=== PATIENT | female | born 1960 | race American Indian/Alaskan Native ===

== ENCOUNTER 2018-08-10 12:36 | Outpatient (CLI) | payer BC ==
--- NOTE | 2018-08-10 15:31 | Mammography Report ---
BONE DEXA:08/10/18 CLINICAL: Postmenopausal. No comparison. TECHNIQUE: Two site bone DEXA performed on an Hologic scanner. FINDINGS: The average BMD of the lumbar spine L1-L4 is 0.933g/cm squared with a T-score of -1.0 and a Z-score of -0.7. The average BMD of the left hip is 0.777g/cm squared with a T-score of -1.4 and a Z-score of -1.0. The left femoral neck BMD is 0.638 with a T score of -1.9 and a Z score of -1.3 IMPRESSION: 1. WHO classification: Normal with average fracture risk based on lumbar spine measurements. 2. WHO classification: Osteopenia with increased fracture risk based on left hip measurements. 3. The FRAX 10 year fracture probability for a major osteoporotic fracture is 3.5%. 4. The FRAX 10 year fracture probability for hip fracture is 0.3%. Note: FRAX version 3.01. Fracture probability calculated for an untreated patient. Fracture probability may be lower if the patient has received treatment. RECOMMENDATION: Clinical correlation and routine screening. DEFINITIONS: BMD = Bone Mineral Density T-score = BMD related to mean peak bone mass of young adult (mean expressed in Standard Deviation) Z-score = Age matched BMD expressed in SD World Health Organization (WHO) Diagnostic Criteria Normal T-score > -1 SD Osteopenia T-score between -1 and -2.4 SD Osteoporosis T-score -2.5 SD or below NOTE: BMD is not the only risk factor for fracture; also consider factors such as the patient's age, risk of falling, previous osteoporotic fracture, family history of osteoporotic fractures, current smoker, and low body weight. All treatment decisions require clinical judgment and consideration of individual patient factors, including patient preferences, comorbidities, previous drug use and risk factors not captured in the FRAX model (e.g. frailty, falls, vitamin D deficiency, increased bone turnover, interval significant decline in BMD). Fracture probability is calculated for an untreated patient. Fracture probability may be lower if the patient has received treatment. Z-scores are not calculated if >80 years of age.
== END 2018-08-10 12:37 | disposition home or self-care (01) ==
LOC: MAMMO 12:36
PROVIDERS: ATTEND Internal Medicine
DX: M85.88 Other specified disorders of bone density and structure, other site (principal); Z78.0 Asymptomatic menopausal state
CPT/HCPCS: 77080

== ENCOUNTER 2018-11-30 13:13 | Outpatient (CLI) | payer BC ==
[2018-11-30 14:01] LABS: Basophils % (Auto) 0.3 % (0.0-1.8); Eosinophils # (Auto) 0.1 K/mm3 (0.0-0.4); Eosinophils % (Auto) 0.8 % (0.0-4.3); Hematocrit 36.3 % (30.3-42.9); Lymphocytes # (Auto) 1.2 K/mm3 (1.2-5.4); Mean Corpuscular HGB Conc 33 % (30-34); Mean Corpuscular Volume 83 fl (79-97); Monocytes # (Auto) 0.9 K/mm3 (0.0-0.8); Monocytes % (Auto) 13.5 % (0.0-7.3); Platelet Count 240 K/mm3 (140-440); Red Blood Count 4.39 M/mm3 (3.65-5.03); Red Cell Distribution Width 14.3 % (13.2-15.2)
[2018-11-30 14:36] LABS: Alanine Aminotransferase 17 units/L (7-56); BUN/Creatinine Ratio 15; Blood Urea Nitrogen 9 mg/dL (7-17); Calcium 8.7 mg/dL (8.4-10.2); Hemolysis Index 9
== END 2018-11-30 13:14 | disposition home or self-care (01) ==
LOC: LAB 13:13
PROVIDERS: ATTEND Internal Medicine
DX: E11.9 Type 2 diabetes mellitus without complications (principal); K59.1 Functional diarrhea
CPT/HCPCS: 80053; 84443; 85025

== ENCOUNTER 2019-01-16 08:27 | Day surgery (SDC) | payer BC ==
[~2019-01-16 08:27] MED LIST: NACL 0.9% 1000 ML 1,000 ML IV SCH
--- NOTE | 2019-01-16 09:46 | Anesthesia Day of Surgery ---
Anesthesia Day of Surgery - Day of Surgery Patient Examined: Yes Patient H&P Reviewed: Yes Patient is NPO: Yes
--- NOTE | 2019-01-16 09:47 | Anesthesia Consultation ---
Anesthesia Consult and Med Hx Date of service: 01/16/19 - Airway Anesthetic Teeth Evaluation: Good, Crowns ROM Head & Neck: Adequate Mental/Hyoid Distance: Adequate Mallampati Class: Class I Intubation Access Assessment: Good - Pre-Operative Health Status ASA Pre-Surgery Classification: ASA2 Proposed Anesthetic Plan: MAC - Cardiovascular System Hx Coronary Artery Disease: No (ETT 12/01 ok per pt) - Gastrointestinal Hx Gastroesophageal Reflux Disease: Yes - Endocrine Hx Non-Insulin Dependent Diabetes: Yes
[2019-01-16] MEDS ORDERED: WATER FOR IRRIG STERILE IR ONE (10:06)
[2019-01-16] MEDS ORDERED: DIPRIVAN 10 MG/ML IV ONE ×2 (10:13)
--- NOTE | 2019-01-16 10:40 | Short Stay Summary ---
Short Stay Documentation Date of service: 01/16/19 Narrative H&P: The patient present for surveillance colonoscopy for personal history of polyps and strong FH of colon cancer, mother. Previous study about 5 years ago. No records available. - History Past Medical History: diabetes, other (DVT, IBS) Past Surgical History: hysterectomy (oopherectomy) Social history: no significant social history, , no smoking, no alcohol abuse - Allergies and Medications Current Medications: Allergies sulfamethoxazole [From Bactrim] Allergy (Mild, Verified 01/15/19 15:19) Rash trimethoprim [From Bactrim] Allergy (Mild, Verified 01/15/19 15:19) Rash Sulfa (Sulfonamide Antibiotics) Adverse Reaction (Verified 01/15/19 15:19) Itching Home Medications Medication Instructions Recorded Confirmed Last Taken Type Ibuprofen 800 mg PO PRN PRN 01/15/19 01/16/19 01/09/19 History Amaryl 2 mg PO BID 01/16/19 01/16/19 01/14/19 History metFORMIN 500 mg PO BID 01/16/19 01/16/19 01/14/19 History Active Medications Sodium Chloride (Nacl 0.9% 1000 Ml) 1,000 mls @ 50 mls/hr IV DIRECT KEVIN Last Admin: 01/16/19 09:59 Dose: 50 mls/hr Documented by: - Physical exam General appearance: no acute distress, well-nourished Integumentary: no rash, no growths, no abnormal pigmentation HEENT: Atraumatic, PERRLA, EOMI, Mucous membr. moist/pink Lungs: Clear to auscultation, Normal air movement Breasts: deferred Heart: Regular rate, Normal S1, Normal S2, No murmurs Gastrointestinal: normoactive bowel sounds, no tenderness, no distended, no masses, no guarding, no organomegaly, no obese Female Genitourinary: deferred Rectal Exam: deferred Extremities: no ischemia, pulses intact, pulses symmetrical, No edema, normal temperature, normal color, Full ROM Neurological: Normal gait, Normal speech, Strength at 5/5 X4 ext, Normal tone, Sensation intact, Cranial nerves 3-12 NL - Brief post op/procedure progress note Date of procedure: 01/16/19 Procedure: see dictated report Estimated blood loss: none Pathology: none Condition: stable - Disposition Condition at discharge: Good Disposition: DC-01 TO HOME OR SELFCARE - Discharge Diagnoses (1) History of colon polyps Status: Acute (2) FH: colon cancer Status: Acute Short Stay Discharge Plan Activity: other (no driving for 24 hours) Weight Bearing Status: Full Weight Bearing Diet: diabetic Follow up with: LUISA TOWNSEND MD [Primary Care Provider] - 7 Days
--- NOTE | 2019-01-16 10:42 | Operative Report ---
Operative Report Operative Report: Date of procedure: 01/16/2019 Preprocedure diagnosis: Surveillance colonoscopy for history of polyps and high risk screening for family history of first-degree member with colon cancer mother. Post procedure diagnosis: Normal study Procedure: Colonoscopy to the cecum Endoscopist: Dr. Islas Anesthesia: Monitored anesthesia care per anesthesia department Estimated blood loss: 0 Medications: Monitored anesthesia care. See separate report by anesthesia for details. After careful discussion of the nature and purpose of the procedure as well as details of the technique risks benefits and alternatives the patient gave consent. Please see recent history and physical from the office. The patient was placed in the left lateral decubitus position and medicated per anesthesia. A rectal exam was performed sphincter tone was normal there were no masses palpable. The [employer] 570 scope was passed transanally and advanced under continuous direct vision without difficulty to the cecum. The colon was well prepared. The cecum was normal. The ascending colon was normal and on forward and retroflexed views. The transverse colon, descending colon, and sigmoid colon were normal. The rectum was normal on forward and retroflexed views. The procedure was well-tolerated overall and the patient was observed in recovery. Conclusions: Normal colonoscopy to the cecum. Plan: Repeat colonoscopy in 5 years. Signed electronically: Archie Islas M.D.
[2019-01-16 11:36] VITALS: BP 117/56
== END 2019-01-16 08:28 | disposition home or self-care (01) ==
LOC: GIO 08:27
PROVIDERS: ATTEND Internal Medicine Gastroenterology
DX: R19.7 Diarrhea, unspecified (principal); R10.30 Lower abdominal pain, unspecified; I25.10 Atherosclerotic heart disease of native coronary artery without angina pectoris; K21.9 Gastro-esophageal reflux disease without esophagitis; E11.9 Type 2 diabetes mellitus without complications; F32.9 Major depressive disorder, single episode, unspecified; Z80.0 Family history of malignant neoplasm of digestive organs; Z86.010 Personal history of colon polyps; Z88.2 Allergy status to sulfonamides; Z88.8 Allergy status to other drugs, medicaments and biological substances; Z79.899 Other long term (current) drug therapy; Z79.84 Long term (current) use of oral hypoglycemic drugs; Z90.710 Acquired absence of both cervix and uterus; Z98.890 Other specified postprocedural states; Z90.721 Acquired absence of ovaries, unilateral; Z86.718 Personal history of other venous thrombosis and embolism
CPT/HCPCS: 45378; J2704; J7030

== ENCOUNTER 2019-08-24 08:23 | Outpatient (CLI) | payer BC ==
--- NOTE | 2019-08-27 12:02 | Mammography Report ---
DIGITAL SCREENING MAMMOGRAM WITH CAD, 08/24/2019 INDICATION: Routine screening mammography. TECHNIQUE: Digital bilateral 2D mammography was obtained in the craniocaudal and mediolateral obliq ue projections. This examination was interpreted with the benefit of Computer-Aided Detection analysi s. COMPARISON: 06/12/2018 FINDINGS: Breast Density: The breasts are heterogeneously dense, which may obscure small masses. There is no evidence of dominant mass, suspicious calcifications or architectural distortion in eithe r breast. IMPRESSION: No mammographic evidence of malignancy. Follow up recommendation: Routine yearly BI-RADS Category 1: Negative. A "normal" or negative report should not discourage follow up or biopsy of a clinically significant f inding. A written summary of these findings will be mailed to the patient. The patient will be entered into a mammography reporting system which will generate a reminder letter for the patient's next appointmen t at the appropriate interval. The [employer] recommends yearly mammograms starting at age 40 and continuing as l evelyn as a woman is in good health. Breast MRI is recommended for women with an approximate 20-25% or greater lifetime risk of breast cancer, including women with a strong family history of breast or ova valdemar cancer or who have been treated for Hodgkin's disease. Signer Name: Leonel Villareal MD Signed: 08/27/2019 11:58 AM Workstation Name: [id number]
== END 2019-08-24 08:24 | disposition home or self-care (01) ==
LOC: SPVWC 08:23
PROVIDERS: ATTEND Obstetrics & Gynecology
DX: Z12.31 Encounter for screening mammogram for malignant neoplasm of breast (principal)
CPT/HCPCS: 77067